=== PATIENT | female | born 1980 | race American Indian/Alaskan Native ===

== ENCOUNTER 2017-05-05 20:19 | Emergency (ER) | payer OTHER ==
[2017-05-05 21:24] VITALS: BP 131/84; PULSE 82; RESP 20; TEMP 98.2; O2SAT 100
--- NOTE | 2017-05-05 21:50 | C.PDOC ---
History Of Present Illness 36 year old female presents to the ER after she fell on the snow on Monday and felt a "crack" to her left knee. Patient reports the knee is still painful, she reports pain when she bends the knee but not when applying pressure. Denies weakness or numbness. Chief Complaint (Nursing): Lower Extremity Problem/Injury History Per: Patient History/Exam Limitations: no limitations Onset/Duration Of Symptoms: Days Current Symptoms Are (Timing): Still Present Recent travel outside of the [place]: No - Knee Description Of Injury: Fell Currently Unable To: Bend Or Move Past Medical History Reviewed: Historical Data, Nursing Documentation, Vital Signs Vital Signs: Last Vital Signs Temp 98.2 F 05/05/17 21:08 Pulse 82 05/05/17 21:08 Resp 20 05/05/17 21:08 BP 131/84 05/05/17 21:08 Pulse Ox 100 05/05/17 22:14 Family History: States: Unknown Family Hx - Social History Hx Alcohol Use: No Hx Substance Use: No Review Of Systems Musculoskeletal: Positive for: Leg Pain Neurological: Negative for: Weakness, Numbness Physical Exam - Physical Exam Appears: Non-toxic, No Acute Distress Skin: Normal Color, Warm, Dry Head: Atraumatic, Normacephalic Eye(s): bilateral: Normal Inspection Extremity: Tenderness (Medial and lateral aspect of left knee), No Deformity, No Swelling Pulses: Left Dorsalis Pedis: Normal, Right Dorsalis Pedis: Normal Neurological/Psych: Oriented x3, Normal Speech, Normal Motor, Normal Sensation Gait: Steady ED Course And Treatment O2 Sat by Pulse Oximetry: 100 (Room air) Pulse Ox Interpretation: Normal - Other Rad Left knee x-ray X-Ray: Interpreted by Me, Viewed By Me Interpretation: No acute fracture or dislocation Progress Note: Knee immobilizer was applied by CP and checked by me, crutches and crutch walking instruction provided. Patient was instrcuetd to f/u with PMD and Orthopedist. Disposition - Disposition Referrals: Yuriy Talamantes III, MD [Staff Provider] - Disposition: HOME/ ROUTINE Disposition Time: 22:13 Condition: STABLE Additional Instructions: Follow up with Orthopedist within 1-2 days. Return to ED if feel worse. Prescriptions: Ibuprofen [Motrin Tab] 600 mg PO Q8 #30 tab Instructions: Knee Sprain (DC) Forms: [facility] (Hebrew) - Clinical Impression Clinical Impression: Knee sprain - PA / FOOD ADVISER / Resident Statement MD/DO has reviewed & agrees with the documentation as recorded. - Scribe Statement The provider has reviewed the documentation as recorded by the Scribmartha Grande All medical record entries made by the Scribe were at my direction and personally dictated by me. I have reviewed the chart and agree that the record accurately reflects my personal performance of the history, physical exam, medical decision making, and the department course for this patient. I have also personally directed, reviewed, and agree with the discharge instructions and disposition.
--- NOTE | 2017-05-06 09:27 | RAD ---
PROCEDURE: Left Knee Radiographs. HISTORY: Pain. COMPARISON: None. FINDINGS: BONES: Bone alignment and mineralization are normal. There is no acute displaced fracture or bone destruction. JOINTS: No osteoarthritis. JOINT EFFUSION: None. OTHER FINDINGS: None. IMPRESSION: No acute fracture or dislocation.
== END 2017-05-05 22:34 | disposition home or self-care (01) ==
LOC: C.ER 20:19
DX: S83.92XA Sprain of unspecified site of left knee, initial encounter (principal); W00.0XXA Fall on same level due to ice and snow, initial encounter